=== PATIENT | female | born 1975 | race Hispanic/Latino ===

== ENCOUNTER 2020-03-06 18:19 | Emergency (ER) | payer OTHER, SELFPAY ==
--- NOTE | ~2020-03-06 | XR_ITS ---
EXAMINATION: XR chest 2V DATE: 03/06/2020 18:51 INDICATION: Cough with shortness of breath. TECHNIQUE: PA and lateral views of the chest were obtained. COMPARISON: Chest radiograph dated 03/31/2014 FINDINGS: The lungs remain clear with no focal airspace opacities, pulmonary edema, pleural effusion or pneumot horax. The cardiomediastinal silhouette is normal. Post cystectomy clips in the right upper quadrant. Mild thoracic spondylosis. IMPRESSION: 1. No acute cardiopulmonary disease. Reviewed, dictated and finalized at location A.
[2020-03-06 18:30] VITALS: BP 144/95; PULSE 84; RESP 18; TEMP 36.7; O2SAT 99
--- NOTE | 2020-03-06 18:30 | ED.URI ---
HPI - URI/Sore Throat General Chief Complaint: Upper Respiratory Infection Stated Complaint: upper respiratory infection Time Seen by Provider: 03/06/20 18:30 Source: patient and RN notes reviewed Mode of arrival: ambulatory Limitations: no limitations History of Present Illness HPI Narrative: 44 year old female who presents to express care with complaints of cough and congestion with feeling kind of tight in her chest with cough but no complaints of acute dyspnea. Patient has history of allergies and also sinus infection for which she was treated the first part of February with antibiotic of Augmentin. Patient sates that she had sinus surgery last year and takes daily sinus medication of Lara D and Flonase. Patient denies any headaches, sinus pressure or nasal drainage at this time, feels like some post nasal drainage at times. Patient states that she had negative Covid test done February 24. Patient states that her daughter had been sick and whole family was tested. MD elicited complaint: cough and other (post nasal drainage) Pertinent past history: sinusitis, seasonal allergies and other (previous sinus surgery, bronchitis in past) Onset (ago): day(s) (1) Consistency: constant Severity: moderate Pain scale (0-10): 5 Description of mucous: other (post nasal drainage) Able to tolerate fluids by mouth: Yes Exacerbating factors: nothing Relieving factors: nothing Context: other (sinus infection February and environmental allergies) Associated symptoms: cough and other (tightness chest with cough) Treatments prior to arrival: other (flonase, sinus medication) Related Data Home Medications Medication Instructions Recorded Confirmed cetirizine [Zyrtec] 10 mg PO DAILY 03/06/20 03/06/20 Allergies Allergy/AdvReac Type Severity Reaction Status Date / Time No Known Allergies Allergy Verified 09/11/11 12:11 Review of Systems Review of Systems: Narrative: CONSTITUTIONAL: Denies fever, chills, or sweats. EYES: Denies visual changes, redness, or discharge. ENT: post nasal drainage, chest congestion,no sore throat, or otalgia. CARDIOVASCULAR: Denies chest pain, palpitations, or edema.tightness chest with cough RESPIRATORY: positive cough denies dyspnea. GASTROINTESTINAL: Denies abdominal pain, nausea, vomiting, or diarrhea. GENITOURINARY: Denies dysuria or hematuria. SKIN: Denies rash or itching. MUSCULOSKELETAL: Denies back pain, joint pain, or myalgia. NEUROLOGIC: Denies headache, numbness, or weakness. PSYCHIATRIC: Positive anxiety or depression. All systems reviewed & are unremarkable except as noted in HPI and below PMFSH Past Medical History Medical History (Updated 03/06/20 @ 19:21 by Shelli Mancini NP) Anxiety and depression HLD (hyperlipidemia) HTN (hypertension) Surgical History Surgical History (Updated 03/06/20 @ 19:19 by Shelli Mancini NP) H/O sinus surgery H/O: hysterectomy Hx of cholecystectomy S/P partial thyroidectomy Social History Social History (Updated 03/06/20 @ 19:20 by Shelli Mancini NP) Smoking status: Never smoker Alcohol intake: never Substance use: never Living arrangements: with family Gender identity (if verbalized by the patient): Female Comments At time of signature, agree with nursing past medical, surgical, social and family history. There is no relevant family history pertinent to the presenting complaint Exam Narrative: Exam Narrative: GENERAL: Well-appearing, well-nourished, and in no acute distress. HEAD: Normocephalic, atraumatic. EYES: PERRLA and EOMI. ENT: Nares red turbinates, no rhinorrhea or epistaxis. Mucous membranes moist.TM's normal with good light reflex, throat light red with no lesions or tonsil enlargement, post nasal drip noted. NECK: Supple.no lymphadenopathy CHEST: Clear to auscultation. No respiratory distress.SAO2 99% on room air HEART: Regular rate and rhythm. No murmur heard. Normal peripheral pulses. ABDOMEN: Soft, nonte
== END 2020-03-06 19:06 | disposition home or self-care (01) ==
PROVIDERS: Emergency Provider Registered Nurse; PCP Emergency Medicine
DX: J06.9 Acute upper respiratory infection, unspecified (principal); E78.5 Hyperlipidemia, unspecified; I10 Essential (primary) hypertension; F41.9 Anxiety disorder, unspecified; F32.9 Major depressive disorder, single episode, unspecified
CPT/HCPCS: 71046; 99213; G0463

== ENCOUNTER 2021-08-04 15:08 | Emergency (ER) | payer OTHER, SELFPAY ==
[2021-08-04 15:15] VITALS: BP 126/88; PULSE 99; RESP 18; TEMP 36.9; O2SAT 99
--- NOTE | 2021-08-04 15:59 | ED.URI ---
HPI - URI/Sore Throat General Chief Complaint: Upper Respiratory Infection Stated Complaint: Sinus,Sore Throat,Cough,Runny Nose Time Seen by Provider: 08/04/21 15:50 Source: patient and RN notes reviewed Mode of arrival: ambulatory Limitations: no limitations History of Present Illness HPI Narrative: Patient presents today complaining of a 2-week history of productive cough, sore throat, headache, postnasal drip, sinus pressure with congestion, bilateral ear pain and pressure. She also reports a fever 3 days ago that has resolved. She has been taking cold and flu medication, NyQuil, Claritin, Flonase, and using a humidifier without relief. She was on azithromycin in June related to a sinus infection due to her COVID-19. MD elicited complaint: cough, sore throat, nasal congestion and sinus pain Related Data Home Medications Medication Instructions Recorded Confirmed cetirizine [Zyrtec] 10 mg PO DAILY 03/06/20 08/04/21 Allergies Allergy/AdvReac Type Severity Reaction Status Date / Time No Known Allergies Allergy Verified 08/04/21 15:12 Review of Systems Review of Systems: CONSTITUTIONAL: Denies body aches, chills, or sweats.+ Fever EYES: Denies visual changes, redness, or discharge. ENT: Denies rhinorrhea. + Bilateral ear pain and pressure, postnasal drip, sore throat, lost voice, sinus pain, congestion CARDIOVASCULAR: Denies chest pain, palpitations, or edema. RESPIRATORY: Denies dyspnea.+ Cough GASTROINTESTINAL: Denies abdominal pain, nausea, vomiting, or diarrhea. GENITOURINARY: Denies dysuria or hematuria. SKIN: Denies rash, itching, or wounds. MUSCULOSKELETAL: Denies back pain, joint pain, or myalgia. NEUROLOGIC: Denies numbness, tingling, or weakness.+ Headache PSYCH: Denies depression or anxiety. [facility] Past Medical History Medical History Anxiety and depression Body mass index [BMI] 27.0-27.9, adult (04/27/17) Body mass index [BMI] 29.0-29.9, adult (01/26/17) Body mass index [BMI] 32.0-32.9, adult (10/25/15) Body mass index [BMI] 34.0-34.9, adult (09/30/16) HLD (hyperlipidemia) HTN (hypertension) Major depressive disorder, single episode, unspecified Obesity, unspecified Type 2 diabetes mellitus without complication, without long-term current use of insulin Vitamin D deficiency Surgical History Surgical History H/O sinus surgery H/O: hysterectomy Hx of cholecystectomy S/P partial thyroidectomy Family History Family History Mother Diabetes mellitus Hypertension Father Hypertension Family history of cardiovascular disease Family history of malignant neoplasm Social History Social History Smoking status: Never smoker Alcohol intake: never Substance use: never Gender identity (if verbalized by the patient): Female Comments At time of signature, I have reviewed and agree with nursing past medical, surgical, social and family history unless otherwise noted. Please see nursing chart for further information. There is no relevant family history pertinent to the presenting complaint Exam Narrative: GENERAL: Well-appearing, well-nourished, and in no acute distress. HEAD: Normocephalic, atraumatic. EYES: EOMI. No redness or drainage. Conjunctivae normal. ENT: Mucous membranes pink and moist. Nares congested. No rhinorrhea. Lateral nasal turbinates are erythematous and edematous with purulent discharge. Bilateral TMs are retracted. Throat normal with white postnasal drainage. Uvula midline. Voice seems normal. Bilateral frontal sinus tenderness. No maxillary sinus tenderness. NECK: Normal AROM. Supple. No lymphadenopathy. CHEST: No respiratory distress. Clear to auscultation. HEART: Regular rate and rhythm. No murmur appreciated. Normal peripheral pu
== END 2021-08-04 16:05 | disposition home or self-care (01) ==
PROVIDERS: Emergency Provider Nurse Practitioner; PCP Emergency Medicine
DX: J40 Bronchitis, not specified as acute or chronic (principal); J01.10 Acute frontal sinusitis, unspecified; E78.5 Hyperlipidemia, unspecified; I10 Essential (primary) hypertension; E66.9 Obesity, unspecified; Z68.42 Body mass index [BMI] 45.0-49.9, adult; E11.9 Type 2 diabetes mellitus without complications; Z79.4 Long term (current) use of insulin; Z90.711 Acquired absence of uterus with remaining cervical stump; E55.9 Vitamin D deficiency, unspecified; F41.9 Anxiety disorder, unspecified; F32.A Depression, unspecified
CPT/HCPCS: 87081; 87804; 87880; 99213; G0463

== ENCOUNTER → 2021-09-05 15:33 | Outpatient (CLI) | payer OTHER, SELFPAY ==
--- NOTE | ~2021-09-05 | US_ITS ---
EXAMINATION: US transvaginal DATE: 09/05/2021 16:14 INDICATION: Right lower quadrant abdominal pain. TECHNIQUE: Multiple transvaginal sonographic images of the pelvis were obtained. COMPARISON: CT abdomen and pelvis 05/28/2010 FINDINGS: The uterus is absent. There is no free fluid in the pelvis. The right ovary measures 2.2 x 1.3 x 2.5 cm. The left ovary measures 2.6 x 1.5 x 1.9 cm. There is normal vascular flow in the ovaries. IMPRESSION: 1. Normal ovaries. Absent uterus. Reviewed, dictated and finalized at location A.
== END ==
PROVIDERS: PCP Obstetrics & Gynecology Gynecology; Visit Provider Obstetrics & Gynecology Gynecology
DX: R10.11 Right upper quadrant pain (principal)
CPT/HCPCS: 76830

== ENCOUNTER 2021-10-10 14:41 | Outpatient (CLI) | payer OTHER, SELFPAY ==
--- NOTE | ~2021-10-10 | CT_ITS ---
EXAMINATION: CT abdomen pelvis w con INDICATION: Pelvic and perineal pain TECHNIQUE: Computed tomographic images of the abdomen and pelvis were obtained after the administrati on of 100 cc of Omnipaque 350 intravenous contrast. The dose-length product (DLP) was 668.14 mGy-cm. Automated exposure control and iterative reconstruction technique were employed. COMPARISON: 05/28/2010 FINDINGS: Minimal dependent atelectasis is present in the lung bases. The heart size is normal. The g allbladder is surgically absent. There is mild enlargement of the common bile duct and central intrah epatic ducts which is likely due to post cholecystectomy state. The liver, spleen, pancreas, and adre nal glands are normal. The kidneys are unremarkable. No pathologically enlarged abdominal or pelvic l ymph nodes are identified. There is no free intraperitoneal gas or evidence of bowel obstruction. A m oderate volume of colonic stool is present. IMPRESSION: 1. Constipation. Reviewed, dictated and finalized at location B. IMPRESSION: 1. Constipation.
[2021-10-10 15:02] LABS: Estimated Glomerular Filt Rate > 60
== END 2021-10-10 14:42 ==
PROVIDERS: PCP Emergency Medicine; Visit Provider Emergency Medicine
DX: R10.2 Pelvic and perineal pain (principal); K59.00 Constipation, unspecified
CPT/HCPCS: 74177; Q9967

== ENCOUNTER 2021-10-31 07:40 | Outpatient (CLI) | payer OTHER, SELFPAY ==
--- NOTE | ~2021-10-31 | US_ITS ---
EXAMINATION: US right upper quadrant DATE: 10/31/2021 11:01 INDICATION: Unspecified abdominal pain. TECHNIQUE: Multiple grayscale and Doppler ultrasound images of the abdomen were obtained. COMPARISON: CT abdomen and pelvis dated 10/10/2021 FINDINGS: The pancreatic head and body are normal in appearance. The pancreatic tail is not visualized. Liver has normal echogenicity and contour, with a smooth surface. No liver lesion identified. Portal venous flow was seen in the hepatopetal, normal direction and has normal Doppler waveform. Status post chol ecystectomy. Unchanged mild intrahepatic biliary ductal dilation and dilation of the common bile duct which measures up to 1.3 cm in maximal diameter. Visualized portion of the upper pole of the right k idney demonstrates normal contour and echogenicity with no hydronephrosis. Visualized portion of the proximal inferior vena cava is normal. IMPRESSION: 1. Unchanged mild intra- and extra hepatic biliary ductal dilation which may be related to prior chol ecystectomy. Reviewed, dictated and finalized at location B. IMPRESSION: 1. Unchanged mild intra- and extra hepatic biliary ductal dilation which may be related to prior cholecystectomy.
== END 2021-10-31 07:41 | disposition home or self-care (01) ==
PROVIDERS: PCP Emergency Medicine; Visit Provider Emergency Medicine
DX: R10.9 Unspecified abdominal pain (principal); K83.8 Other specified diseases of biliary tract
CPT/HCPCS: 76705

== ENCOUNTER 2021-11-13 06:34 | Outpatient (CLI) | payer OTHER, SELFPAY ==
--- NOTE | ~2021-11-13 | MR_ITS ---
EXAMINATION: MR MRCP wo/w con/w 3D wo ind DATE: 11/13/2021 08:13 INDICATION: Other specified diseases of biliary tract. Right upper quadrant abdominal pain. TECHNIQUE: Magnetic resonance imaging (MRI) of the abdomen was performed without and with 14 mL Multi Vanita intravenous contrast. Sequences included coronal T2-weighted FS FSE, coronal T2-weighted FSE, a xial T1-weighted LAVA, coronal FS FIESTA, axial dual-echo T1-weighted SPGR, coronal lava-FLEX, sagitt al T2-weighted FSE, axial T2-weighted FSE, and axial DWI. Thick-slab T2-weighted FSE images were obta ined for magnetic resonance cholangiopancreatography (MRCP). Maximum intensity projection 3-D reconst ructions of the volumetric data were created by the technologist. Postcontrast sequences included cor onal LAVA-flex and time course of axial T1-weighted LAVA. COMPARISON: Ultrasound 10/31/2021, CT abdomen and pelvis 10/10/2021 FINDINGS: ABDOMEN MRI: There are cysts in the liver measuring up to 6 mm. There is mild intrahepatic biliary du ct dilatation. The gallbladder is absent. The spleen, pancreas, adrenal glands, and kidneys are stacy l. There are no dilated loops of bowel. There are no pathologically enlarged lymph nodes. There is no free intraperitoneal fluid. ABDOMEN MRCP: The common duct is mildly dilated to 12 mm. No choledocholithiasis. IMPRESSION: 1. Mild intrahepatic and extrahepatic biliary duct dilatation, likely not clinically significant give n the recent normal liver function tests. No choledocholithiasis. Reviewed, dictated and finalized at location A. IMPRESSION: 1. Mild intrahepatic and extrahepatic biliary duct dilatation, likely not clini chriss significant given the recent normal liver function tests. No choledocholi thiasis.
== END 2021-11-13 06:35 | disposition home or self-care (01) ==
PROVIDERS: PCP Emergency Medicine; Visit Provider Emergency Medicine
DX: K83.8 Other specified diseases of biliary tract (principal); K76.89 Other specified diseases of liver
CPT/HCPCS: 74183; 76376; A9577

== ENCOUNTER 2021-11-26 11:23 | Outpatient (CLI) | payer OTHER, SELFPAY ==
[2021-11-26 11:37] LABS: Hematocrit 41.5 % (37.0-47.0); Hemoglobin 13.9 g/dL (12.0-15.0); Mean Corpuscular HGB Conc 33.5 g/dl (32-36); Mean Corpuscular Hemoglobin 29.4 pg (26-34); Mean Corpuscular Volume 87.9 fl (80-100); Mean Platelet Volume 9.6 fl (7.4-10.4); Platelet Count Result 255 k/mm3 (150-375); Red Blood Count 4.72 M/mm3 (4.2-5.4); Red Cell Distribution Width 12.7 % (11.5-14.5); White Blood Count 5.4 K/mm3 (4.5-10.0)
[2021-11-26 11:51] LABS: INR 0.9; Prothrombin Time 12.1 Seconds (11.1-14.7)
[2021-11-26 12:02] LABS: Alanine Aminotransferase 21 U/L (6-35); Albumin Level 4.4 g/dL (3.5-5.1); Alkaline Phosphatase 48 U/L (38-126); Aspartate Amino Transferase 22 U/L (14-36); Bilirubin,Total 0.2 mg/dL (0.2-1.3); Lipase 214 U/L (23-300)
== END 2021-11-26 11:24 | disposition home or self-care (01) ==
LOC: ANHLAB 11:24
PROVIDERS: PCP Emergency Medicine; Visit Provider Nurse Practitioner
DX: R93.2 Abnormal findings on diagnostic imaging of liver and biliary tract (principal); R10.11 Right upper quadrant pain
CPT/HCPCS: 36415; 80076; 83690; 85027; 85610

== ENCOUNTER 2021-12-26 01:23 | Day surgery (SDC) | payer OTHER, SELFPAY ==
[2021-12-19 08:54] VITALS: BMI 27.4
--- NOTE | 2021-12-26 09:25 | WPDANESEPPF ---
Anes - Initial Pre Proc Eval Procedure: Operation Date: 12/26/21 13:00 Proposed Procedures p Colonoscopy - Vini Pepe MD Date/Time: 12/26/21 09:25 Surgeon: Vini Pepe MD Pre Op Diagnosis: RUQP, Abdominal pain Patient Data Age: 46 Gender: F Height: 1.63 m Weight: 72.5 kg Allergies Allergy/AdvReac Type Severity Reaction Status Date / Time adhesive tape AdvReac Rash Verified 12/26/21 11:13 Home Medications Medication Instructions Recorded Confirmed Type pantoprazole 40 mg tablet,delayed 40 mg PO DAILY #90 tabs 07/02/21 12/26/21 Rx release (Protonix) sertraline 100 mg tablet 100 mg PO DAILY #90 tabs 07/02/21 12/26/21 Rx elagolix 150 mg tablet (Orilissa) 150 mg PO DAILY 12/19/21 12/26/21 History fluticasone propionate 50 1 spray intranasal DAILY PRN 12/19/21 12/26/21 History mcg/actuation nasal Allergy Symptoms spray,suspension (Flonase Allergy Relief) cholecalciferol (vitamin D3) 1,250 See Rx Instructions .Route 12/23/21 12/26/21 Rx mcg (50,000 unit) capsule .COMPLEX #12 caps Patient hx anesthesia problems: none Family hx anesthesia problems: none Results Review: All pre-operative results and documents have been reviewed as part of the pre-operative evaluation. [facility] Past Medical History Medical History Abnormal findings on imaging of biliary tract Anxiety and depression Body mass index [BMI] 27.0-27.9, adult (04/27/17) Body mass index [BMI] 29.0-29.9, adult (01/26/17) Body mass index [BMI] 32.0-32.9, adult (10/25/15) Body mass index [BMI] 34.0-34.9, adult (09/30/16) Continuous RUQ abdominal pain HLD (hyperlipidemia) HTN (hypertension) Liver cyst Major depressive disorder, single episode, unspecified Obesity, unspecified Type 2 diabetes mellitus without complication, without long-term current use of insulin Vitamin D deficiency Surgical History Surgical History H/O sinus surgery H/O: hysterectomy Hx of cholecystectomy S/P partial thyroidectomy Family History Family History Mother Diabetes mellitus Hypertension Father Hypertension Family history of cardiovascular disease Family history of malignant neoplasm Social History Social History Smoking status: Never smoker Alcohol intake: never Substance use: never Substance use type: does not use Living arrangements: with family Gender identity (if verbalized by the patient): Female Spiritual care concerns: No Anes - Eval Final PreProcedure Day of Procedure 12/26/21 09:25 Patient weight: overweight Heart: regular rate and rhythm Lungs: clear to auscultation and normal air movement Airway: Mallampati scale class II Neurological: alert and oriented Last oral intake: >/= 8 hours ASA classification: III Emergent: no Anesthetic plan: proceed Anesthesia type and monitoring: general GIVS Results Review: All pre-operative results and documents have been reviewed as part of the pre-operative evaluation. Informed Consent: The patient's anesthetic plan and its attendant risks and benefits were discussed with the patient/family/POA. Questions were solicited and answers provided to the satisfaction of the patient/family/POA.
[2021-12-26 11:15] VITALS: BP 137/84; PULSE 77; RESP 16; TEMP 36.4; O2SAT 98
[2021-12-26] MEDS: LACTATED RINGERS 1,000 ML 150 ML IV CONT (11:19)
--- NOTE | 2021-12-26 11:44 | WPDHPUPDATE1 ---
History and Physical Update Update Date/Time: 12/26/21 11:44 History and Physical has been reviewed, including an updated exam of the patient. There are NO changes in the patient's condition. Risks, benefits, and alternatives have been discussed and questions answered. Patient agrees to proceed with procedure.
[2021-12-26 12:24] VITALS: BP 131/88; PULSE 74; RESP 18; O2SAT 100
[2021-12-26 12:34] VITALS: BP 135/86; PULSE 68; RESP 18; O2SAT 100
[2021-12-26 12:44] VITALS: BP 142/82; PULSE 72; RESP 20; O2SAT 100
== END 2021-12-26 12:50 | disposition home or self-care (01) ==
PROVIDERS: PCP Emergency Medicine; Visit Provider Internal Medicine Gastroenterology
PROC: 0DJD8ZZ Inspection of Lower Intestinal Tract, Via Natural or Artificial Opening Endoscopic (ICD-10-PCS; CPT 45378; principal; 2021-12-26 13:00)
DX: Z12.11 Encounter for screening for malignant neoplasm of colon (principal); R10.84 Generalized abdominal pain; K64.8 Other hemorrhoids; I10 Essential (primary) hypertension; E78.5 Hyperlipidemia, unspecified; E11.9 Type 2 diabetes mellitus without complications; E55.9 Vitamin D deficiency, unspecified; F32.A Depression, unspecified; F41.9 Anxiety disorder, unspecified
CPT/HCPCS: 45378; J2704; J7120

== ENCOUNTER 2022-04-16 17:19 | Emergency (ER) | payer OTHER, SELFPAY ==
--- NOTE | 2022-04-16 17:27 | ED.URI ---
HPI - URI/Sore Throat General Chief Complaint: Upper Respiratory Infection Stated Complaint: Sore Throat Time Seen by Provider: 04/16/22 17:45 Source: patient and RN notes reviewed Mode of arrival: ambulatory Limitations: no limitations History of Present Illness HPI Narrative: 46-year-old female presents with concern for sore throat, cough, postnasal drainage, headache. Reports symptoms started Thursday. Reports temperature up to 101, she has not had a temperature since yesterday. She reports she has taken Tylenol and lioz-wlm-auopdre cough medicine little relief. Reports her daughter had influenza last week MD elicited complaint: cough and sore throat Related Data Home Medications Medication Instructions Recorded Confirmed elagolix 150 mg tablet (Orilissa) 150 mg PO DAILY 12/19/21 04/16/22 loratadine 10 mg tablet (Claritin) 10 mg PO DAILY 04/16/22 04/16/22 Allergies Allergy/AdvReac Type Severity Reaction Status Date / Time adhesive tape AdvReac Mild Rash Verified 04/16/22 17:32 Review of Systems Review of Systems: CONSTITUTIONAL: Reports malaise, fever. EYES: Denies visual changes, redness, or discharge. ENT: Reports rhinorrhea, congestion, and sore throat. Denies sinus pain, otalgia CARDIOVASCULAR: Denies chest pain, palpitations, or edema. RESPIRATORY: Reports cough. Denies dyspnea. GASTROINTESTINAL: Denies abdominal pain, nausea, vomiting, diarrhea SKIN: Denies rash or itching. MUSCULOSKELETAL: Reports myalgia. NEUROLOGIC: Reports headache. All systems reviewed & are unremarkable except as noted in HPI and below PMFSH Past Medical History Medical History Abnormal findings on imaging of biliary tract Anxiety and depression Body mass index [BMI] 27.0-27.9, adult (04/27/17) Body mass index [BMI] 29.0-29.9, adult (01/26/17) Body mass index [BMI] 32.0-32.9, adult (10/25/15) Body mass index [BMI] 34.0-34.9, adult (09/30/16) Continuous RUQ abdominal pain HLD (hyperlipidemia) HTN (hypertension) Liver cyst Major depressive disorder, single episode, unspecified Obesity, unspecified Type 2 diabetes mellitus without complication, without long-term current use of insulin Vitamin D deficiency Surgical History Surgical History H/O sinus surgery H/O: hysterectomy Hx of cholecystectomy S/P partial thyroidectomy Family History Family History Mother Diabetes mellitus Hypertension Father Hypertension Family history of cardiovascular disease Family history of malignant neoplasm Social History Social History Smoking status: Never smoker Alcohol intake: never Substance use: never Substance use type: does not use Gender identity (if verbalized by the patient): Female Spiritual care concerns: No Comments At time of signature, agree with nursing past medical, surgical, social and family history. There is no relevant family history pertinent to the presenting complaint Exam Narrative: GENERAL: Nontoxic-appearing And in no acute distress. HEAD: Normocephalic EYES: PERRLA, conjunctivae clear ENT: Nares clear, turbinates edematous and erythematous, clear discharge. Mucous membranes moist. TM pearly hoang with dull light reflex bilaterally; no tragal tenderness. Oropharynx not erythematous without lesions. Tonsils not enlarged and without exudate, no drooling, no hoarseness, no trismus, uvula midline. NECK: Supple. No lymphadenopathy CHEST: Clear to auscultation, breath sounds equal. No wheezing, rhonchi, rales, or stridor. No respiratory distress, speaks in full sentences. HEART: Regular rate and rhythm. No murmur heard. SKIN: Warm, dry, no rash. NEURO: Alert and oriented x3. PSYCH: Normal mood and affect Course Course Emergency Course: Patient is aware of diagnosis, understands and a
[2022-04-16 17:29] VITALS: BP 143/85; PULSE 82; RESP 18; TEMP 36.4; O2SAT 100
== END 2022-04-16 18:12 | disposition home or self-care (01) ==
PROVIDERS: Emergency Provider Nurse Practitioner; PCP Emergency Medicine
DX: J11.1 Influenza due to unidentified influenza virus with other respiratory manifestations (principal); Z20.822 Contact with and (suspected) exposure to COVID-19; E78.5 Hyperlipidemia, unspecified; I10 Essential (primary) hypertension; E66.9 Obesity, unspecified; Z68.27 Body mass index [BMI] 27.0-27.9, adult; E11.9 Type 2 diabetes mellitus without complications; F41.9 Anxiety disorder, unspecified; F32.9 Major depressive disorder, single episode, unspecified
CPT/HCPCS: 87081; 87426; 87804; 87880; 99213; C9803; G0463

== ENCOUNTER 2022-05-11 13:55 | Emergency (ER) | payer OTHER, SELFPAY ==
[2022-05-11 14:08] VITALS: BP 136/91; PULSE 85; RESP 18; TEMP 36.6; O2SAT 98
[2022-05-11 14:11] VITALS: BP 136/91; PULSE 85; RESP 18; TEMP 36.6; O2SAT 98
--- NOTE | 2022-05-11 14:39 | ED.URI ---
HPI - URI/Sore Throat General Chief Complaint: Upper Respiratory Infection Stated Complaint: Sore Throat,Runny Nose Time Seen by Provider: 05/11/22 14:33 Source: patient Mode of arrival: ambulatory Limitations: no limitations History of Present Illness HPI Narrative: Patient presents today complaining of 5 day history of sore throat, intermittent fever up to 101, congestion, postnasal drip, headache. States her daughter was recently diagnosed with strep throat and daughter's friend was diagnosed with COVID, who patient was exposed to recently. She currently rates her pain 12/15 and has tried [id number] medication without relief. Related Data Home Medications Medication Instructions Recorded Confirmed elagolix 150 mg tablet (Orilissa) 150 mg PO DAILY 12/19/21 05/11/22 loratadine 10 mg tablet (Claritin) 10 mg PO DAILY 04/16/22 05/11/22 Allergies Allergy/AdvReac Type Severity Reaction Status Date / Time adhesive tape AdvReac Mild Rash Verified 05/11/22 14:10 Review of Systems Review of Systems: CONSTITUTIONAL: Denies body aches, chills, or sweats.+ fever EYES: Denies visual changes, redness, or discharge. ENT: Denies rhinorrhea, or otalgia.+ congestion, sore throat, postnasal drip CARDIOVASCULAR: Denies chest pain, palpitations, or edema. RESPIRATORY: Denies dyspnea.+ cough GASTROINTESTINAL: Denies abdominal pain, nausea, vomiting, or diarrhea. GENITOURINARY: Denies dysuria or hematuria. SKIN: Denies rash, itching, or wounds. MUSCULOSKELETAL: Denies back pain, joint pain, or myalgia. NEUROLOGIC: Denies numbness, tingling, or weakness.+ headache PSYCH: Denies depression or anxiety. ON LICENSE OF [facility] Past Medical History Medical History Abnormal findings on imaging of biliary tract Anxiety and depression Body mass index [BMI] 27.0-27.9, adult (04/27/17) Body mass index [BMI] 29.0-29.9, adult (01/26/17) Body mass index [BMI] 32.0-32.9, adult (10/25/15) Body mass index [BMI] 34.0-34.9, adult (09/30/16) Continuous RUQ abdominal pain HLD (hyperlipidemia) HTN (hypertension) Liver cyst Major depressive disorder, single episode, unspecified Obesity, unspecified Type 2 diabetes mellitus without complication, without long-term current use of insulin Vitamin D deficiency Surgical History Surgical History H/O sinus surgery H/O: hysterectomy Hx of cholecystectomy S/P partial thyroidectomy Family History Family History Mother Diabetes mellitus Hypertension Father Hypertension Family history of cardiovascular disease Family history of malignant neoplasm Social History Social History Smoking status: Never smoker Alcohol intake: never Substance use: never Substance use type: does not use Gender identity (if verbalized by the patient): Female Spiritual care concerns: No Comments At time of signature, I have reviewed and agree with nursing past medical, surgical, social and family history unless otherwise noted. Please see nursing chart for further information. There is no relevant family history pertinent to the presenting complaint Exam Narrative: GENERAL: Mildly ill-appearing, well-nourished, and in no acute distress. HEAD: Normocephalic, atraumatic. EYES: EOMI. No redness or drainage. Conjunctivae normal. ENT: Mucous membranes pink and moist. Nares clear. No rhinorrhea. TMs normal bilaterally. Throat normal. Uvula midline. NECK: Normal AROM. Supple. Left anterior cervical chain lymphadenopathy. CHEST: No respiratory distress. Clear to auscultation. HEART: Regular rate and rhythm. No murmur appreciated. Normal peripheral pulses. EXTREMITIES: Normal range of motion. No edema. SKIN: Warm, dry, no rash. Capillary refill normal. Normal skin turgor. NEURO: No f
== END 2022-05-11 15:36 | disposition home or self-care (01) ==
PROVIDERS: Emergency Provider Nurse Practitioner; PCP Emergency Medicine
DX: J06.9 Acute upper respiratory infection, unspecified (principal); Z20.822 Contact with and (suspected) exposure to COVID-19; E78.5 Hyperlipidemia, unspecified; I10 Essential (primary) hypertension; E11.9 Type 2 diabetes mellitus without complications; E66.9 Obesity, unspecified; Z68.27 Body mass index [BMI] 27.0-27.9, adult
CPT/HCPCS: 87081; 87426; 87880; 99213; C9803; G0463

== ENCOUNTER 2022-07-07 16:21 | Emergency (ER) | payer OTHER, SELFPAY ==
--- NOTE | ~2022-07-07 | XR_ITS ---
EXAMINATION: XR chest 2V DATE: 07/07/2022 16:53 INDICATION: 10 days of cough TECHNIQUE: PA and lateral views of the chest were obtained. COMPARISON: Chest radiograph dated 03/06/2020 FINDINGS: Minimal linear lingular discoid atelectasis near the left costophrenic angle. No other airspace opaci ties, pulmonary edema, pleural effusion or pneumothorax. The cardiomediastinal silhouette is normal. Visualized bones and soft tissues are unremarkable. Cholecystectomy clips in right upper quadrant. IMPRESSION: 1. Minimal lingular atelectasis. No other acute cardiopulmonary disease. Reviewed, dictated and finalized at location [facility]
[2022-07-07 16:32] VITALS: BP 136/91; PULSE 80; RESP 18; TEMP 36.7; O2SAT 98
[2022-07-07 16:33] VITALS: BP 136/91; PULSE 80; RESP 18; TEMP 36.7; O2SAT 98
--- NOTE | 2022-07-07 16:49 | ED.URI ---
HPI - URI/Sore Throat General Chief Complaint: Upper Respiratory Infection Stated Complaint: cold symptoms Source: patient Mode of arrival: ambulatory Limitations: no limitations History of Present Illness HPI Narrative: 46-year-old female presents to [facility] with complaints of runny nose, headache, congestion, cough and sore throat on and off for the past 10 days. Patient reports that she ran fevers up to 101, last fever was 2 days ago. Patient reports that she was evaluated at a different Urgent Care 7 days ago and was prescribed cough medication containing codeine and amoxicillin. Patient reports that she is needing a COVID test completed so she is able to return back to work. Patient is a nonsmoker. Patient denies sick contacts. Patient denies recent travel. MD elicited complaint: cough, sore throat and nasal congestion Onset (ago): day(s) () Able to tolerate fluids by mouth: Yes Related Data Home Medications Medication Instructions Recorded Confirmed elagolix 150 mg tablet (Orilissa) 150 mg PO DAILY 12/19/21 07/07/22 loratadine 10 mg tablet (Claritin) 10 mg PO DAILY 04/16/22 07/07/22 acetaminophen 300 mg-codeine 30 mg 1 tablet DIRECTED 07/07/22 07/07/22 tablet amoxicillin 875 mg tablet 875 mg DIRECTED 07/07/22 07/07/22 Allergies Allergy/AdvReac Type Severity Reaction Status Date / Time adhesive tape AdvReac Mild Rash Verified 05/12/22 14:22 Review of Systems Constitutional: Constitutional: Denies chills, Denies fatigue, Reports fever(s) and Denies weakness ENT: Denies vertigo, Denies dizziness, Reports nasal congestion and Reports sore throat Respiratory: Respiratory: Reports cough, Denies dyspnea and Denies wheezing Gastrointestinal: Gastrointestinal: Denies diarrhea, Denies nausea and Denies vomiting Musculoskeletal: Musculoskeletal: Denies arthralgias and Denies joint swelling Integumentary/Breasts: Skin/Breast: Denies rash PMFSH Past Medical History Medical History Abnormal findings on imaging of biliary tract Anxiety and depression Body mass index [BMI] 27.0-27.9, adult (04/27/17) Body mass index [BMI] 29.0-29.9, adult (01/26/17) Body mass index [BMI] 32.0-32.9, adult (10/25/15) Body mass index [BMI] 34.0-34.9, adult (09/30/16) Continuous RUQ abdominal pain HLD (hyperlipidemia) HTN (hypertension) Liver cyst Major depressive disorder, single episode, unspecified Obesity, unspecified Type 2 diabetes mellitus without complication, without long-term current use of insulin Vitamin D deficiency Surgical History Surgical History H/O sinus surgery H/O: hysterectomy Hx of cholecystectomy S/P partial thyroidectomy Family History Family History Mother Diabetes mellitus Hypertension Father Hypertension Family history of cardiovascular disease Family history of malignant neoplasm Social History Social History Smoking status: Never smoker Alcohol intake: never Substance use: never Substance use type: does not use Living arrangements: with family Gender identity (if verbalized by the patient): Female Spiritual care concerns: No Comments At time of signature, I agree with nursing past medical, surgical, social and family history. There is no relevant family history pertinent to the presenting complaint. Exam Const: General: healthy appearing and no acute distress Nutritional Appearance: well nourished Orientation/consciousness: patient oriented x3 Limitations: no limitations HENMT: Head: normal to inspection Ears: external ears normal and TM's normal bilaterally Face/Nose/Sinus: Normal external nose present and Normal nares present Face and sinus: normal facial exam and sinuses nontender Mouth: Yes Normal oral and palatal mucosa present Te
== END 2022-07-07 17:38 | disposition home or self-care (01) ==
PROVIDERS: Emergency Provider Nurse Practitioner Family; PCP Emergency Medicine
DX: R05.9 Cough, unspecified (principal); J98.11 Atelectasis; Z20.822 Contact with and (suspected) exposure to COVID-19; E78.5 Hyperlipidemia, unspecified; I10 Essential (primary) hypertension; E11.9 Type 2 diabetes mellitus without complications; Z90.89 Acquired absence of other organs; F41.9 Anxiety disorder, unspecified; F32.A Depression, unspecified; E55.9 Vitamin D deficiency, unspecified
CPT/HCPCS: 71046; 87426; 99213; C9803; G0463

== ENCOUNTER 2022-09-19 16:37 | Emergency (ER) | payer OTHER, SELFPAY ==
--- NOTE | 2022-09-19 16:43 | ED.UPPEXIN ---
HPI - Extremity Injury (Upper) General Chief Complaint: Extremity Injury, Upper Stated Complaint: upper rt arm and shoulder pain Time Seen by Provider: 09/19/22 16:46 Source: patient Mode of arrival: ambulatory Limitations: no limitations History of Present Illness HPI narrative: Ms. Amador is a 47-year-old female patient presenting to clinic today with complaints of right shoulder and upper arm pain x 2.5months. She reports the pain is gradually getting worse and now is affecting her at nighttime when she is trying to sleep. She reports pain to the posterior shoulder with a sharp shooting pain in her upper arm. States she is having pain with raising her arm above her head as well as having purposeful movement with the right arm. Is also having difficulty with grasping of the right hand. States she has not seen her PCP for this. Related Data Home Medications Medication Instructions Recorded Confirmed elagolix 150 mg tablet (Orilissa) 150 mg PO DAILY 12/19/21 09/19/22 loratadine 10 mg tablet (Claritin) 10 mg PO DAILY 04/16/22 09/19/22 Allergies Allergy/AdvReac Type Severity Reaction Status Date / Time adhesive tape AdvReac Mild Rash Verified 09/19/22 16:57 Review of Systems Review of Systems: Pertinent positives per HPI. Patient denies any fever, chills, rash, headache, visual changes, dizziness, cough, runny nose, sore throat, shortness of breath, chest pain, palpitations, nausea, vomiting, diarrhea, constipation, abdominal pain, or any urinary issues. [facility] Past Medical History Medical History Abnormal findings on imaging of biliary tract Anxiety and depression Body mass index [BMI] 27.0-27.9, adult (04/27/17) Body mass index [BMI] 29.0-29.9, adult (01/26/17) Body mass index [BMI] 32.0-32.9, adult (10/25/15) Body mass index [BMI] 34.0-34.9, adult (09/30/16) Continuous RUQ abdominal pain HLD (hyperlipidemia) HTN (hypertension) Liver cyst Major depressive disorder, single episode, unspecified Obesity, unspecified Type 2 diabetes mellitus without complication, without long-term current use of insulin Vitamin D deficiency Surgical History Surgical History H/O sinus surgery H/O: hysterectomy Hx of cholecystectomy S/P partial thyroidectomy Family History Family History Mother Diabetes mellitus Hypertension Father Hypertension Family history of cardiovascular disease Family history of malignant neoplasm Social History Social History Smoking status: Never smoker Alcohol intake: never Substance use: never Substance use type: does not use Living arrangements: with family Gender identity (if verbalized by the patient): Female Spiritual care concerns: No Comments At the time of my signature, I reviewed and agree with the nursing past medical, surgical, social, and family history. There is no relevant family history pertinent to the patient complaint. Exam Narrative: General: Well-developed, well nourished, in no apparent distress Head: Normocephalic, atraumatic. Cardio: Regular rate and rhythm, s1 and s2 normal, no murmur appreciated. Resp: Clear to auscultation bilaterally, no rhonchi, rales, wheezing or rubs. 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 Level of Care: [facility]
[2022-09-19 16:49] VITALS: BP 132/75; PULSE 83; RESP 18; TEMP 36.4; O2SAT 99
== END 2022-09-19 17:03 | disposition home or self-care (01) ==
PROVIDERS: Emergency Provider Nurse Practitioner Family; PCP Emergency Medicine
DX: M79.621 Pain in right upper arm (principal); S46.911A Strain of unspecified muscle, fascia and tendon at shoulder and upper arm level, right arm, initial encounter; X58.XXXA Exposure to other specified factors, initial encounter; E78.5 Hyperlipidemia, unspecified; I10 Essential (primary) hypertension; E11.9 Type 2 diabetes mellitus without complications; E66.9 Obesity, unspecified; Z68.27 Body mass index [BMI] 27.0-27.9, adult
CPT/HCPCS: 99213; A4565; G0463

== ENCOUNTER 2023-04-09 16:19 | Emergency (ER) | payer OTHER, SELFPAY ==
[2023-04-09 16:43] VITALS: BP 132/83; PULSE 74; RESP 18; TEMP 36.6; O2SAT 99
--- NOTE | 2023-04-09 17:28 | ED.URI ---
HPI - URI/Sore Throat General Chief Complaint: Upper Respiratory Infection Stated Complaint: hoarseness Time Seen by Provider: 04/09/23 17:10 Source: patient Mode of arrival: ambulatory Limitations: no limitations History of Present Illness HPI Narrative: 47 year old female who presents to [facility] care with complaints of sore throat, headache,nasal congestion, chest congestion with productive cough and loss of voice since Thursday. Patient reports no know fevers, but has felt chilled. Patient denies any fevers,nausea or vomiting or diarrhea or any shortness of breath. Patient reports that she has taken Tylenol cold and flu, NyQuil, Ibuprofen, and also Flonase. MD elicited complaint: cough, sore throat and other (headache and felt chilled with loss of voice) Onset (ago): day(s) (4-5 days) Pain scale (0-10): 5 Description of mucous: green Able to tolerate fluids by mouth: Yes Treatments prior to arrival: ibuprofen and other (Tylenol cold and flu, flonase, NyQuil) Related Data Home Medications Medication Instructions Recorded Confirmed elagolix 150 mg tablet (Orilissa) 150 mg PO DAILY 12/19/21 04/09/23 loratadine 10 mg tablet (Claritin) 10 mg PO DAILY 04/16/22 04/09/23 Allergies Allergy/AdvReac Type Severity Reaction Status Date / Time adhesive tape AdvReac Mild Rash Verified 04/09/23 16:54 Review of Systems Review of Systems: CONSTITUTIONAL: Reports malaise, chills, no sweats, or no known fever. EYES: Denies visual changes, redness, or discharge. ENT: Reports rhinorrhea, congestion, sinus pain,no otalgia and positive for sore throat, loss of voice CARDIOVASCULAR: Denies chest pain, palpitations, or edema. RESPIRATORY: Reports productive cough.? Denies dyspnea. GASTROINTESTINAL: Denies abdominal pain, nausea, vomiting, diarrhea SKIN: Denies rash or itching. MUSCULOSKELETAL: Denies myalgia. NEUROLOGIC:Reports headache. All systems reviewed & are unremarkable except as noted in HPI and below PMFSH Past Medical History Medical History Abnormal findings on imaging of biliary tract Anxiety and depression Body mass index [BMI] 27.0-27.9, adult (04/27/17) Body mass index [BMI] 29.0-29.9, adult (01/26/17) Body mass index [BMI] 32.0-32.9, adult (10/25/15) Body mass index [BMI] 34.0-34.9, adult (09/30/16) Continuous RUQ abdominal pain HLD (hyperlipidemia) HTN (hypertension) Liver cyst Major depressive disorder, single episode, unspecified Obesity, unspecified Type 2 diabetes mellitus without complication, without long-term current use of insulin Vitamin D deficiency Surgical History Surgical History H/O sinus surgery H/O: hysterectomy Hx of cholecystectomy S/P partial thyroidectomy Family History Family History Mother Diabetes mellitus Hypertension Father Hypertension Family history of cardiovascular disease Family history of malignant neoplasm Social History Social History Smoking status: Never smoker Alcohol intake: never Substance use: never Substance use type: does not use Lack of Transportation: No Lack of Food: Never True Current Housing: I Have Housing Concerned About Future Housing: No Difficulty Paying Gas/Electric Bills: No Difficulty Paying for Meds: No Currently Unemployed: No Education: Associate Degree Living arrangements: with family Gender identity (if verbalized by the patient): Female Spiritual care concerns: No Comments At time of signature, agree with nursing past medical, surgical, social and family history. There is no relevant family history pertinent to the presenting complaint Exam Narrative: GENERAL: Well-appearing, well-nourished, and in no acute distress. HEAD: Normocephalic EYES: PERRLA, conjunctivae c
== END 2023-04-09 17:46 | disposition home or self-care (01) ==
PROVIDERS: Emergency Provider Registered Nurse; PCP Emergency Medicine
DX: J06.9 Acute upper respiratory infection, unspecified (principal); E78.5 Hyperlipidemia, unspecified; I10 Essential (primary) hypertension; E11.9 Type 2 diabetes mellitus without complications; Z79.899 Other long term (current) drug therapy
CPT/HCPCS: 87081; 87880; 99213; G0463

== ENCOUNTER 2023-06-07 17:32 | Emergency (ER) | payer OTHER, SELFPAY ==
[2023-06-07 17:42] VITALS: BP 121/74; PULSE 100; RESP 18; TEMP 36.5; O2SAT 98
--- NOTE | 2023-06-07 18:23 | ED.GENADULT ---
HPI - General Adult General Chief complaint: Upper Respiratory Infection Stated complaint: Cough,Congestion,Runny Nose Source: patient Mode of arrival: ambulatory Limitations: no limitations History of Present Illness HPI narrative: Patient presents requesting a note to allow her to return to work. She has been sick since 06/01/2023. She reports of fever, body aches, cough, runny nose. Several family members have had similar symptoms. She has taken [id number] DayQuil and NyQuil with improvement in her symptoms thereafter. She was ready to return to work and indicates that her employer is requesting a note to allow her to do so. Related Data Home Medications Medication Instructions Recorded Confirmed elagolix 150 mg tablet (Orilissa) 150 mg PO DAILY 12/19/21 06/07/23 loratadine 10 mg tablet (Claritin) 10 mg PO DAILY 04/16/22 06/07/23 Allergies Allergy/AdvReac Type Severity Reaction Status Date / Time adhesive tape AdvReac Mild Rash Verified 06/07/23 17:34 Review of Systems Review of Systems: CONSTITUTIONAL: reports recent fever, not currently. chills, or sweats. EYES: Denies visual changes, redness, or discharge. ENT: Reports runny nose recently, none currently. Denies congestion, sore throat, or otalgia. CARDIOVASCULAR: Denies chest pain, palpitations, or edema. RESPIRATORY:Reports cough. Denies dyspnea. GASTROINTESTINAL: Denies abdominal pain, nausea, vomiting, or diarrhea. GENITOURINARY: Denies dysuria or hematuria. SKIN: Denies rash or itching. MUSCULOSKELETAL: Reports recent generalized body aches, none currently NEUROLOGIC: Denies headache, numbness, dizziness, or weakness. PSYCHIATRIC: Denies anxiety or depression. [facility] Past Medical History Medical History Abnormal findings on imaging of biliary tract Anxiety and depression Body mass index [BMI] 27.0-27.9, adult (04/27/17) Body mass index [BMI] 29.0-29.9, adult (01/26/17) Body mass index [BMI] 32.0-32.9, adult (10/25/15) Body mass index [BMI] 34.0-34.9, adult (09/30/16) Continuous RUQ abdominal pain HLD (hyperlipidemia) HTN (hypertension) Liver cyst Major depressive disorder, single episode, unspecified Obesity, unspecified Type 2 diabetes mellitus without complication, without long-term current use of insulin Vitamin D deficiency Surgical History Surgical History H/O sinus surgery H/O: hysterectomy Hx of cholecystectomy S/P partial thyroidectomy Family History Family History Mother Diabetes mellitus Hypertension Father Hypertension Family history of cardiovascular disease Family history of malignant neoplasm Social History Social History Smoking status: Never smoker Alcohol intake: never Substance use: never Substance use type: does not use Lack of Transportation: No Lack of Food: Never True Current Housing: I Have Housing Concerned About Future Housing: No Difficulty Paying Gas/Electric Bills: No Difficulty Paying for Meds: No Currently Unemployed: No Education: Associate Degree Difficulty w/ Childcare or Family Care: No Living arrangements: with family Gender identity (if verbalized by the patient): Female Spiritual care concerns: No Exam Narrative: GENERAL: Well-appearing, well-nourished, and in no acute distress. HEAD: Normocephalic, atraumatic. EYES: PERRLA and EOMI. ENT: Nares clear, no rhinorrhea or epistaxis. Mucous membranes moist. Oropharynx without tonsillar hypertrophy exudate or other lesions. Bilateral TMs pearly hoang nonbulging NECK: Supple. No adenopathy or masses. No carotid bruits or JVD CHEST: Clear to auscultation. No respiratory distress. No wheezes rales or rhonchi HEART: Regular rate and rhythm. No murmur heard. No
== END 2023-06-07 18:23 | disposition home or self-care (01) ==
PROVIDERS: Emergency Provider Nurse Practitioner; PCP Emergency Medicine
DX: B34.9 Viral infection, unspecified (principal); E78.5 Hyperlipidemia, unspecified; I10 Essential (primary) hypertension; E11.9 Type 2 diabetes mellitus without complications; E55.9 Vitamin D deficiency, unspecified; E66.9 Obesity, unspecified; Z68.30 Body mass index [BMI] 30.0-30.9, adult; Z20.822 Contact with and (suspected) exposure to COVID-19
CPT/HCPCS: 87081; 87426; 87804; 87880; 99213; C9803; G0463

== ENCOUNTER 2023-09-07 13:16 | Emergency (ER) | payer OTHER, SELFPAY ==
[2023-09-07 13:28] VITALS: BP 132/83; PULSE 81; RESP 16; TEMP 36.4; O2SAT 99
--- NOTE | 2023-09-07 13:36 | ED.URI ---
HPI - URI/Sore Throat General Chief Complaint: Upper Respiratory Infection Stated Complaint: Headache,Sore Throat,Fever,Runny Nose Source: patient, RN notes reviewed and old records reviewed Mode of arrival: ambulatory Limitations: no limitations History of Present Illness HPI Narrative: 48-year-old female to [facility] with complaint sore throat, headache, nasal congestion for 9 days. Patient reports intermittent temperature up to 100.0 at home. Patient endorses history seasonal allergies. Otherwise patient denies pertinent past history. Patient able to tolerate fluids by. Related Data Home Medications Medication Instructions Recorded Confirmed loratadine 10 mg tablet (Claritin) 10 mg PO DAILY 04/16/22 09/07/23 estradiol 0.5 mg tablet 0.5 mg PO DAILY 09/07/23 09/07/23 sertraline 100 mg tablet 100 mg PO DAILY 09/07/23 09/07/23 Allergies Allergy/AdvReac Type Severity Reaction Status Date / Time adhesive tape AdvReac Mild Rash Verified 09/07/23 13:36 Review of Systems Review of Systems: All systems reviewed & are unremarkable except as noted in HPI and below Constitutional: Constitutional: Reports as per HPI, Reports fever(s) ( intermittent up to 100) and Reports headache(s) Eyes: Eyes: Reports no additional eye complaints ENT: Reports as per HPI, Reports nasal congestion and Reports sore throat Cardiovascular: Cardiovascular: Reports no additional cardiovascular complaints, Denies chest pain and Denies dyspnea Respiratory: Respiratory: Reports no additional respiratory complaints, Denies cough and Denies dyspnea Musculoskeletal: Musculoskeletal: Reports no additional musculoskeletal complaints Neurologic: Reports system reviewed and no additional complaints, except as documented Psychiatric: Psychiatric: Reports no additional psychiatric complaints [facility] Past Medical History Medical History Abnormal findings on imaging of biliary tract Anxiety and depression Body mass index [BMI] 27.0-27.9, adult (04/27/17) Body mass index [BMI] 29.0-29.9, adult (01/26/17) Body mass index [BMI] 32.0-32.9, adult (10/25/15) Body mass index [BMI] 34.0-34.9, adult (09/30/16) Continuous RUQ abdominal pain HLD (hyperlipidemia) HTN (hypertension) Liver cyst Major depressive disorder, single episode, unspecified Obesity, unspecified Type 2 diabetes mellitus without complication, without long-term current use of insulin Vitamin D deficiency Surgical History Surgical History H/O sinus surgery H/O: hysterectomy Hx of cholecystectomy S/P partial thyroidectomy Family History Family History Mother Diabetes mellitus Hypertension Father Hypertension Family history of cardiovascular disease Family history of malignant neoplasm Social History Social History Smoking status: Never smoker Alcohol intake: never Substance use: never Substance use type: does not use Lack of Transportation: No Lack of Food: Never True Current Housing: I Have Housing Concerned About Future Housing: No Difficulty Paying Gas/Electric Bills: No Difficulty Paying for Meds: No Currently Unemployed: No Education: Associate Degree Difficulty w/ Childcare or Family Care: No Living arrangements: with family Gender identity (if verbalized by the patient): Female Spiritual care concerns: No Comments At the time of my signature, I reviewed and agree with the nursing past medical, surgical, social, and family history. There is no relevant family history pertinent to the patient complaint. Exam Const: General: cooperative, healthy appearing, comfortable, no acute distress, alert and well nourished Nutritional Appearance: well nourished Orientation/consciousness: patient oriented
== END 2023-09-07 13:51 | disposition home or self-care (01) ==
PROVIDERS: Emergency Provider Nurse Practitioner Family; PCP Emergency Medicine
DX: J06.9 Acute upper respiratory infection, unspecified (principal); E78.5 Hyperlipidemia, unspecified; I10 Essential (primary) hypertension; E11.9 Type 2 diabetes mellitus without complications; E66.9 Obesity, unspecified; Z68.28 Body mass index [BMI] 28.0-28.9, adult; E55.9 Vitamin D deficiency, unspecified; Z90.89 Acquired absence of other organs; F41.9 Anxiety disorder, unspecified; F32.A Depression, unspecified; F32.9 Major depressive disorder, single episode, unspecified
CPT/HCPCS: 87081; 87880; 99213; G0463

== ENCOUNTER 2024-01-14 11:12 | Emergency (ER) | payer OTHER, SELFPAY ==
[2024-01-14 11:23] VITALS: BP 123/80; PULSE 87; RESP 18; TEMP 36.5; O2SAT 98
--- NOTE | 2024-01-14 11:50 | ED.URI ---
HPI - URI/Sore Throat General Chief Complaint: Upper Respiratory Infection Stated Complaint: sore throat Time Seen by Provider: 01/14/24 11:50 Source: patient, RN notes reviewed and old records reviewed Mode of arrival: ambulatory Limitations: no limitations History of Present Illness HPI Narrative: 48-year-old female presents to the [facility] with complaints of a sore throat, intermittent laryngitis since Thursday, 6 days ago. Has tried multiple [id number] products. Denies any other symptoms Related Data Home Medications Medication Instructions Recorded Confirmed loratadine 10 mg tablet (Claritin) 10 mg PO DAILY 04/16/22 01/14/24 estradiol 1 mg tablet 1 mg PO DAILY 12/08/23 01/14/24 Allergies Allergy/AdvReac Type Severity Reaction Status Date / Time adhesive tape Allergy Mild Rash Verified 01/14/24 11:51 Review of Systems Review of Systems: All systems reviewed & are unremarkable except as noted in HPI and below Constitutional: Constitutional: Reports no additional constitutional complaints Eyes: Eyes: Reports no additional eye complaints ENT: Reports as per HPI and Reports sore throat Cardiovascular: Cardiovascular: Reports no additional cardiovascular complaints, Denies chest pain and Denies dyspnea Respiratory: Respiratory: Reports no additional respiratory complaints, Denies chest congestion, Denies cough and Denies dyspnea Gastrointestinal: Gastrointestinal: Reports no additional gastrointestinal complaints, Denies abdominal pain, Denies nausea and Denies vomiting Musculoskeletal: Musculoskeletal: Reports no additional musculoskeletal complaints Integumentary/Breasts: Skin/Breast: Reports system reviewed and no additional complaints, except as docu Neurologic: Reports system reviewed and no additional complaints, except as documented Psychiatric: Psychiatric: Reports no additional psychiatric complaints Allergic/Immunologic: Allergic/Immunologic: Reports no additional allergic/immunologic complaints [facility] Past Medical History Medical History (Updated 01/14/24 @ 12:07 by Florence Carbajal APRN) Abnormal findings on imaging of biliary tract Anxiety and depression Body mass index [BMI] 27.0-27.9, adult (04/27/17) Body mass index [BMI] 29.0-29.9, adult (01/26/17) Body mass index [BMI] 32.0-32.9, adult (10/25/15) Body mass index [BMI] 34.0-34.9, adult (09/30/16) Continuous RUQ abdominal pain HLD (hyperlipidemia) HTN (hypertension) Liver cyst Major depressive disorder, single episode, unspecified Obesity, unspecified Sinusitis Sore throat Type 2 diabetes mellitus without complication, without long-term current use of insulin Upper respiratory tract infection Vitamin D deficiency Surgical History Surgical History (Updated 12/08/23 @ 15:38 by Ivana Bonilla MA) H/O oophorectomy H/O sinus surgery H/O: hysterectomy Hx of cholecystectomy S/P partial thyroidectomy Family History Family History Mother Diabetes mellitus Hypertension Father Hypertension Family history of cardiovascular disease Family history of malignant neoplasm Social History Social History Smoking status: Never smoker Alcohol intake: never Substance use: never Substance use type: does not use Do You Feel Safe in your Home?: Yes Lack of Transportation: No Lack of Food: Never True Current Housing: I Have Housing Concerned About Future Housing: No Difficulty Paying Gas/Electric Bills: No Difficulty Paying for Meds: No Currently Unemployed: No Education: Associate Degree Difficulty w/ Childcare or Family Care: No Living arrangements: with family Gender identity (if verbalized by the patient): Female Spiritual care concerns: No Comments At the time of my signature, I reviewed and agree with the nursing past medical, surgical, social, and family history. T
[2024-01-14 12:16] LABS: EDSTREPNEGPOS1 Presumptive Negative
== END 2024-01-14 12:13 | disposition home or self-care (01) ==
PROVIDERS: Emergency Provider Nurse Practitioner; PCP Emergency Medicine
DX: B34.9 Viral infection, unspecified (principal); E78.5 Hyperlipidemia, unspecified; I10 Essential (primary) hypertension; E66.9 Obesity, unspecified; Z68.28 Body mass index [BMI] 28.0-28.9, adult; E11.9 Type 2 diabetes mellitus without complications; Z90.89 Acquired absence of other organs
CPT/HCPCS: 87081; 87880; 99213; G0463

== ENCOUNTER 2024-02-26 11:25 | Emergency (ER) | payer OTHER, SELFPAY ==
--- NOTE | 2024-02-26 11:30 | ED.URI ---
HPI - URI/Sore Throat General Chief Complaint: Upper Respiratory Infection Stated Complaint: runny nose / slight cough Time Seen by Provider: 02/26/24 11:29 Source: patient Mode of arrival: ambulatory Limitations: no limitations History of Present Illness HPI Narrative: Lizy is a 48-year-old female patient presenting to the clinic today with complaints of cough and runny nose times 5-6 days. She reports her symptoms are improving however her work is requiring her to have a release back to work. She denies any shortness of breath or chest pain. States that she got a flu shot last week in and developed symptoms. Has been taking DayQuil/NyQuil for her symptoms. No one else is sick at home. Patient works from home MD elicited complaint: cough and nasal congestion Related Data Home Medications Medication Instructions Recorded Confirmed loratadine 10 mg tablet (Claritin) 10 mg PO DAILY 04/16/22 02/26/24 estradiol 1 mg tablet 1 mg PO DAILY 12/08/23 02/26/24 Allergies Allergy/AdvReac Type Severity Reaction Status Date / Time adhesive tape AdvReac Mild Rash Verified 02/26/24 11:30 Review of Systems Review of Systems: Pertinent positives per HPI. Patient denies any fever, chills, rash, headache, visual changes, dizziness, shortness of breath, chest pain, palpitations, nausea, vomiting, diarrhea, constipation, abdominal pain, or any urinary issues. [facility] Past Medical History Medical History Abnormal findings on imaging of biliary tract Anxiety and depression Body mass index [BMI] 27.0-27.9, adult (04/27/17) Body mass index [BMI] 29.0-29.9, adult (01/26/17) Body mass index [BMI] 32.0-32.9, adult (10/25/15) Body mass index [BMI] 34.0-34.9, adult (09/30/16) Continuous RUQ abdominal pain HLD (hyperlipidemia) HTN (hypertension) Liver cyst Major depressive disorder, single episode, unspecified Obesity, unspecified Sinusitis Sore throat Type 2 diabetes mellitus without complication, without long-term current use of insulin Upper respiratory tract infection Vitamin D deficiency Surgical History Surgical History H/O oophorectomy H/O sinus surgery H/O: hysterectomy Hx of cholecystectomy S/P partial thyroidectomy Family History Family History Mother Diabetes mellitus Hypertension Father Hypertension Family history of cardiovascular disease Family history of malignant neoplasm Social History Social History Smoking status: Never smoker Alcohol intake: never Substance use: never Substance use type: does not use Do You Feel Safe in your Home?: Yes Lack of Transportation: No Lack of Food: Never True Current Housing: I Have Housing Concerned About Future Housing: No Difficulty Paying Gas/Electric Bills: No Difficulty Paying for Meds: No Currently Unemployed: No Education: Associate Degree Difficulty w/ Childcare or Family Care: No Living arrangements: with family Gender identity (if verbalized by the patient): Female Spiritual care concerns: No Comments At the time of my signature, I reviewed and agree with the nursing past medical, surgical, social, and family history. There is no relevant family history pertinent to the patient complaint. Exam Narrative: General: Well-developed, morbidly obese, in no apparent distress Head: Normocephalic, atraumatic Eyes: Pupils equally round and reactive to light bilaterally, EOM intact, sclera and conjunctive clear, no discharge, lids normal Ears: TMs intact and clear, ear canals clear, no drainage, grossly hearing normal. Nose: Nares patent, clear nasal discharge, no inflammation, no sinus tenderness. Mouth: Oral pharynx without lesions or masses, good dentition, MMM. Neck: Supple, trachea midlin
[2024-02-26 11:37] VITALS: BP 140/84; PULSE 84; RESP 16; TEMP 36.5; O2SAT 98
== END 2024-02-26 11:46 | disposition home or self-care (01) ==
PROVIDERS: Emergency Provider Nurse Practitioner Family; PCP Emergency Medicine
DX: J06.9 Acute upper respiratory infection, unspecified (principal); E78.5 Hyperlipidemia, unspecified; I10 Essential (primary) hypertension; E11.9 Type 2 diabetes mellitus without complications; E66.9 Obesity, unspecified; Z68.27 Body mass index [BMI] 27.0-27.9, adult
CPT/HCPCS: 99211; G0463

== ENCOUNTER 2024-05-25 18:06 | Emergency (ER) | payer OTHER, SELFPAY ==
[2024-05-25 18:18] VITALS: BP 141/85; PULSE 66; RESP 18; TEMP 36.1; O2SAT 99
--- NOTE | 2024-05-25 18:28 | ED.URI ---
HPI - URI/Sore Throat General Chief Complaint: Upper Respiratory Infection Stated Complaint: cold Time Seen by Provider: 05/25/24 18:29 Source: patient, RN notes reviewed and old records reviewed Mode of arrival: ambulatory Limitations: no limitations History of Present Illness HPI Narrative: patient presents with complaints of hoarse voice, sinus pain, sinus pressure. She reports that she has had the sinus pain and pressure along with postnasal drainage for approximately 3 weeks. She has been intermittently taking [id number] medication for her symptoms with poor relief. She has an associated headache. She denies any injury or trauma. She became concerned yesterday when her voice began to fail her. She reports difficulty speaking over a whisper. She denies any fever, chills, sweats. She does affirm being more tired than normal. She voices no other concerns or complaints today Related Data Home Medications ?Medication ?Instructions ?Recorded ?Confirmed ?Last Taken ?Type loratadine 10 mg tablet (Claritin) 10 mg PO DAILY 04/16/22 02/26/24 Unknown History estradiol 1 mg tablet 1 mg PO DAILY 12/08/23 02/26/24 Unknown History Allergies Allergy/AdvReac Type Severity Reaction Status Date / Time adhesive tape AdvReac Mild Rash Verified 05/25/24 18:15 Review of Systems Review of Systems: All systems reviewed & are unremarkable except as noted in HPI and below Constitutional: Constitutional: Reports no additional constitutional complaints and Reports headache(s) ENT: Reports system reviewed and no additional complaints, except as documented, Reports hoarseness, Reports nasal congestion, Reports nasal discharge, Reports sinus pain, Reports sinus pressure and Reports sore throat Cardiovascular: Cardiovascular: Reports no additional cardiovascular complaints Respiratory: Respiratory: Reports no additional respiratory complaints Gastrointestinal: Gastrointestinal: Reports no additional gastrointestinal complaints [facility] Past Medical History Medical History Abnormal findings on imaging of biliary tract Anxiety and depression Body mass index [BMI] 27.0-27.9, adult (04/27/17) Body mass index [BMI] 29.0-29.9, adult (01/26/17) Body mass index [BMI] 32.0-32.9, adult (10/25/15) Body mass index [BMI] 34.0-34.9, adult (09/30/16) Continuous RUQ abdominal pain HLD (hyperlipidemia) HTN (hypertension) Liver cyst Major depressive disorder, single episode, unspecified Obesity, unspecified Sinusitis Sore throat Type 2 diabetes mellitus without complication, without long-term current use of insulin Upper respiratory tract infection Vitamin D deficiency Surgical History Surgical History H/O oophorectomy H/O sinus surgery H/O: hysterectomy Hx of cholecystectomy S/P partial thyroidectomy Family History Family History Mother Diabetes mellitus Hypertension Father Hypertension Family history of cardiovascular disease Family history of malignant neoplasm Social History Social History Smoking status: Never smoker Alcohol intake: never Substance use: never Substance use type: does not use Do You Feel Safe in your Home?: Yes Lack of Transportation: No Lack of Food: Never True Current Housing: I Have Housing Concerned About Future Housing: No Difficulty Paying Gas/Electric Bills: No Difficulty Paying for Meds: No Currently Unemployed: No Education: Associate Degree Difficulty w/ Childcare or Family Care: No Living arrangements: with family Gender identity (if verbalized by the patient): Female Spiritual care concerns: No Comments At the time of my signature, I reviewed and agree with the nursing past medical, surgical, social, and family history. There is no relevant family history pertinent to the patient complaint. Exam Const: General: cooperative, no acute distress, alert and awake Orientation/consciousness: oriented to person, oriented to place and oriented to time HENMT: Head: normal to inspection Ears: TM abnormal with fluid behind the TM bilateral Face and sinus: sinus tenderness maxillary Resp: Effort & Inspection: normal respiratory effort and able to speak in complete sentences Auscultation: clear to auscultation bilaterally, no crackles, no rales, no rhonchi and no wheezes Cardio: Palpation: normal PMI Rate: regular rate Rhythm: regular rhythm Heart sounds: S1 normal heart sound present and S2 normal heart sound present Neuro: General: oriented to person, oriented to place and oriented to time Cranial nerves: Yes CN's II-XII intact bilaterally Psych: Appearance: grossly normal Thought process: Normal thought process present Insight: Good insight present (Psych) Judgement: Good judgement present (Psych) Course Course Level of Care: Express Care Visit Vital Signs Vital signs: Vital Signs Temperature 97.0 F L 05/25/24 18:18 Pulse Rate 66 05/25/24 18:18 Respiratory Rate 18 05/25/24 18:18 Blood Pressure 141/85 H 05/25/24 18:18 Pulse Oximetry 99 05/25/24 18:18 Oxygen Delivery Room Air 05/25/24 18:18 Temperature 97.0 F L 05/25/24 18:18 Pulse Rate 66 05/25/24 18:18 Respiratory Rate 18 05/25/24 18:18 Blood Pressure 141/85 H 05/25/24 18:18 Pulse Oximetry 99 05/25/24 18:18 Oxygen Delivery Room Air 05/25/24 18:18 Reviewed MDM - URI/Sore Throat MDM Narrative Medical decision making narrative: history and exam consistent with sinusitis. Patient is nontoxic appearing and stable for discharge home on p.o. antibiotic therapy. Steroid burst to help with symptoms. Discharge instructions reviewed with patient, as well as provided in writing per nursing staff. The instructions also include specific and strict return/GO TO THE ER as well as f/u information. All questions have been answered, and the patient deny any further questions with discharge and discharge plan. Some parts of this dictation were generated by voice recognition software and may contain typographical and/or grammatical inaccuracies. Differential Diagnosis Differential diagnosis: Likely upper respiratory infection, otitis media, sinusitis and bronchitis Medical Records Attestation: I reviewed the patient's medical records. Discharge Plan Discharge Clinical Impression: Sinusitis Patient Disposition: Home, Self-Care Condition: Stable Instructions: Antibiotic Form, Sinusitis (ED) Additional Instructions: take medications as prescribed. Follow-up primary care provider. Emergency department for any new or worse symptoms Patient Language: Iraqi Prescriptions: New amoxicillin-pot clavulanate 875-125 mg tablet 1 tablet PO Q12H Qty: 20 0RF prednisone 50 mg tablet 50 mg PO DAILY Qty: 3 0RF No Action loratadine [Claritin] 10 mg Tablet 10 mg PO DAILY estradiol 1 mg tablet 1 mg PO DAILY Rx Instructions: off 1 week; repeat cycle pantoprazole 40 mg tablet,delayed release (DR/EC) See Rx Instructions .ROUTE .COMPLEX Qty: 90 2RF Dose Instruction: TAKE 1 TABLET BY MOUTH DAILY Rx Instructions: TAKE 1 TABLET BY MOUTH DAILY (DME) blood-glucose meter [Accu-Chek Guide Glucose Meter] [facility] [place] See Rx Instructions .Route Qty: 1 3RF Rx Instructions: As directed (DME) Accu-Chek Guide test strips Strip See Rx Instructions .Route Qty: 100 3RF Rx Instructions: To test blood sugar up to 3 times per day (DME) lancing device with lancets [Accu-Chek Soft Dev Lancets] Kit See Rx Instructions .Route Qty: 1 3RF Rx Instructions: To test blood sugar up to 3 times per day cholecalciferol (vitamin D3) 1,250 mcg (50,000 unit) capsule See Rx Instructions .ROUTE .COMPLEX Qty: 12 2RF Dose Instruction: TAKE 1 CAPSULE BY MOUTH ONCE A WEEK Rx Instructions: TAKE 1 CAPSULE BY MOUTH ONCE A WEEK sertraline 100 mg tablet 100 mg PO DAILY Qty: 90 2RF Ozempic 0.25 mg or 0.5 mg (2 mg/3 mL) pen injector See Rx Instructions .ROUTE .COMPLEX Qty: 3 3RF Dose Instruction: INJECT 0.5 MG SUBCUTANEOUSLY WEEKLY Rx Instructions: INJECT 0.5 MG SUBCUTANEOUSLY WEEKLY Follow-up/Referrals: Sandro Palma MD [Primary Care Provider] - Stand Alone Forms: Work/School Release IP Time of Disposition: 18:44
== END 2024-05-25 18:45 | disposition home or self-care (01) ==
PROVIDERS: Emergency Provider Nurse Practitioner Family; PCP Emergency Medicine
DX: J32.9 Chronic sinusitis, unspecified (principal); I10 Essential (primary) hypertension; E78.5 Hyperlipidemia, unspecified; E11.9 Type 2 diabetes mellitus without complications; E66.9 Obesity, unspecified; Z68.27 Body mass index [BMI] 27.0-27.9, adult
CPT/HCPCS: 99213; G0463

== ENCOUNTER 2024-05-27 08:00 | Emergency (ER) | payer OTHER, SELFPAY ==
[2024-05-27 08:11] VITALS: BP 136/89; PULSE 75; RESP 18; TEMP 36.3; O2SAT 98
--- NOTE | 2024-05-27 08:14 | ED_ITS ---
HPI - URI/Sore Throat General Chief Complaint: Recheck/Abnormal Lab/Rx Stated Complaint: work note Time Seen by Provider: 05/27/24 08:14 Source: patient, RN notes reviewed and old records reviewed Mode of arrival: ambulatory Limitations: no limitations History of Present Illness HPI Narrative: patient seen and treated for sinusitis and laryngitis 2 days ago presents today with continued loss of voice. 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 Related Data Home Medications ?Medication ?Instructions ?Recorded ?Confirmed ?Last Taken ?Type loratadine 10 mg tablet (Claritin) 10 mg PO DAILY 04/16/22 02/26/24 Unknown Hi story estradiol 1 mg tablet 1 mg PO DAILY 12/08/23 02/26/24 Unknown History Allergies Allergy/AdvReac Type Severity Reaction Status Date / Time adhesive tape AdvReac Mild Rash Verified 05/27/24 08:13 Review of Systems Review of Systems: All systems reviewed & are unremarkable except as noted in HPI and below Constitutional: Constitutional: Reports no additional constitutional complaints and Reports lethargy ENT: Reports system reviewed and no additional complaints, except as documented, Reports hoarseness and Reports sore throat Cardiovascular: Cardiovascular: Reports no additional cardiovascular complaints Respiratory: Respiratory: Reports no additional respiratory complaints Gastrointestinal: Gastrointestinal: Reports no additional gastrointestinal complaints [facility] Past Medical History Medical History Sore throat Upper respiratory tract infection Liver cyst Continuous RUQ abdominal pain Abnormal findings on imaging of biliary tract Body mass index [BMI] 27.0-27.9, adult (04/27/17) Body mass index [BMI] 29.0-29.9, adult (01/26/17) Body mass index [BMI] 32.0-32.9, adult (10/25/15) Body mass index [BMI] 34.0-34.9, adult (09/30/16) Major depressive disorder, single episode, unspecified Obesity, unspecified Type 2 diabetes mellitus without complication, without long-term current use of insulin Vitamin D deficiency Anxiety and depression Sinusitis HLD (hyperlipidemia) HTN (hypertension) Surgical History Surgical History H/O oophorectomy H/O: hysterectomy Hx of cholecystectomy S/P partial thyroidectomy H/O sinus surgery Family History Family History Mother Diabetes mellitus Hypertension Father Hypertension Family history of cardiovascular disease Family history of malignant neoplasm Social History Social History Smoking status: Never smoker Alcohol intake: never Substance use: never Substance use type: does not use Do You Feel Safe in your Home?: Yes Lack of Transportation: No Lack of Food: Never True Current Housing: I Have Housing Concerned About Future Housing: No Difficulty Paying Gas/Electric Bills: No Difficulty Paying for Meds: No Currently Unemployed: No Education: Associate Degree Difficulty w/ Childcare or Family Care: No Living arrangements: with family Gender identity (if verbalized by the patient): Female Spiritual care concerns: No Comments At the time of my signature, I reviewed and agree with the nursing past medical, surgical, social, and family history. There is no relevant family history pertinent to the patient complaint. Exam Const: General: cooperative, no acute distress, alert and awake Orientation/consciousness: oriented to person, oriented to place and oriented to time HENMT: Head: normal to inspection Mouth: Yes moist mucous membranes Throat: posterior oropharynx abnormal erythema and other ( Hoarse voice noted) Resp: Effort & Inspection: normal respiratory effort and able to speak in complete sentences Auscultation: clear to auscultation bilaterally, no crackles, no rales, no rhonchi and no wheezes Cardio: Palpation: normal PMI Rate: regular rate Rhythm: regular rhythm Heart sounds: S1 normal heart sound present and S2 normal heart sound present Neuro: General: oriented to person, oriented to place and oriented to time Cranial nerves: Yes CN's II-XII intact bilaterally Psych: Appearance: grossly normal Thought process: Normal thought process present Insight: Good insight present (Psych) Judgement: Good judgement present (Psych) Course Course Level of Care: Express Care Visit Vital Signs Vital signs: Vital Signs Temperature 97.4 F L 05/27/24 08:11 Pulse Rate 75 05/27/24 08:11 Respiratory Rate 18 05/27/24 08:11 Blood Pressure 136/89 05/27/24 08:11 Pulse Oximetry 98 05/27/24 08:11 Oxygen Delivery Room Air 05/27/24 08:11 Temperature 97.4 F L 05/27/24 08:11 Pulse Rate 75 05/27/24 08:11 Respiratory Rate 18 05/27/24 08:11 Blood Pressure 136/89 05/27/24 08:11 Pulse Oximetry 98 05/27/24 08:11 Oxygen Delivery Room Air 05/27/24 08:11 Reviewed MDM - URI/Sore Throat MDM Narrative Medical decision making narrative: patient treated with Augmentin and prednisone for sinusitis 2 days ago. Reports that she is taking Augmentin as prescribed, not taking prednisone as prescribed, not resting her voice. She is here today for a work note. This has been provided. She was instructed once again to take medications as prescribed, rest her voice. Follow with primary care provider. Emergency department for new or worse symptoms. Discharge instructions reviewed with patient, as well as provided in writing per nursing staff. The instructions also include specific and strict return/GO TO THE ER as well as f/u information. All questions have been answered, and the patient deny any further questions with discharge and discharge plan. Some parts of this dictation were generated by voice recognition software and may contain typographical and/or grammatical inaccuracies. Differential Diagnosis Differential diagnosis: Likely upper respiratory infection, croup, sinusitis, viral infection, bronchitis and pharyngitis Medical Records Attestation: I reviewed the patient's medical records. Discharge Plan Discharge Clinical Impression: Laryngitis Patient Disposition: Home, Self-Care Condition: Stable Instructions: Antibiotic Form, Cold Symptoms (ED) Additional Instructions: Rest your voice. Take medications as prescribed. Follow with primary care provider. Emergency department for new or worse symptoms Patient Language: Tongan Prescriptions: No Action loratadine [Claritin] 10 mg Tablet 10 mg PO DAILY amoxicillin-pot clavulanate 875-125 mg tablet 1 tablet PO Q12H Qty: 20 0RF prednisone 50 mg tablet 50 mg PO DAILY Qty: 3 0RF estradiol 1 mg tablet 1 mg PO DAILY Rx Instructions: off 1 week; repeat cycle pantoprazole 40 mg tablet,delayed release (DR/EC) See Rx Instructions .ROUTE .COMPLEX Qty: 90 2RF Dose Instruction: TAKE 1 TABLET BY MOUTH DAILY Rx Instructions: TAKE 1 TABLET BY MOUTH DAILY (DME) blood-glucose meter [Accu-Chek Guide Glucose Meter] [facility] [place] See Rx Instructions .Route Qty: 1 3RF Rx Instructions: As directed (DME) Accu-Chek Guide test strips Strip See Rx Instructions .Route Qty: 100 3RF Rx Instructions: To test blood sugar up to 3 times per day (DME) lancing device with lancets [Accu-Chek Soft Dev Lancets] Kit See Rx Instructions .Route Qty: 1 3RF Rx Instructions: To test blood sugar up to 3 times per day cholecalciferol (vitamin D3) 1,250 mcg (50,000 unit) capsule See Rx Instructions .ROUTE .COMPLEX Qty: 12 2RF Dose Instruction: TAKE 1 CAPSULE BY MOUTH ONCE A WEEK Rx Instructions: TAKE 1 CAPSULE BY MOUTH ONCE A WEEK sertraline 100 mg tablet 100 mg PO DAILY Qty: 90 2RF Ozempic 0.25 mg or 0.5 mg (2 mg/3 mL) pen injector See Rx Instructions .ROUTE .COMPLEX Qty: 3 3RF Dose Instruction: INJECT 0.5 MG SUBCUTANEOUSLY WEEKLY Rx Instructions: INJECT 0.5 MG SUBCUTANEOUSLY WEEKLY Follow-up/Referrals: Sandro Palma MD [Primary Care Provider] - 1 Week Stand Alone Forms: Work/School Release IP Time of Disposition: 08:21
== END 2024-05-27 08:29 | disposition home or self-care (01) ==
PROVIDERS: Emergency Provider Nurse Practitioner Family; PCP Emergency Medicine
DX: J04.0 Acute laryngitis (principal); E11.9 Type 2 diabetes mellitus without complications; E78.5 Hyperlipidemia, unspecified; I10 Essential (primary) hypertension; E66.9 Obesity, unspecified; Z68.27 Body mass index [BMI] 27.0-27.9, adult
CPT/HCPCS: 99211; G0463

== ENCOUNTER 2024-07-22 13:23 | Outpatient (CLI) | payer OTHER, SELFPAY ==
--- NOTE | ~2024-07-22 | MM_ITS ---
EXAMINATION: MM screening [facility] BI w reyes HISTORY: Screening TECHNIQUE: Craniocaudal and mediolateral oblique 3-D tomosynthesis images were obtained and synthetic 2-D images were generated. CAD analysis was submitted and interpreted. COMPARISON: No prior mammogram is available for comparison at this institution. BREAST PARENCHYMAL COMPOSITION: Not dense: There are scattered areas of fibroglandular density. FINDINGS: There is no evidence of suspicious mass, calcification, or architectural distortion to sugg est malignancy in either breast. There has been no suspicious interval change. IMPRESSION: 1. No mammographic evidence of malignancy. 2. Recommend routine screening mammography in one year. BI-RADS Category 1: Negative Reviewed, dictated and finalized at location B. [employer] BUSINESS DEVELOPMENT [employer]NA[employer]ST
== END 2024-07-22 13:24 | disposition home or self-care (01) ==
DX: Z12.31 Encounter for screening mammogram for malignant neoplasm of breast (principal)
CPT/HCPCS: 77063; 77067